=== PATIENT | male | born 1965 | race Caucasian/White ===

== ENCOUNTER 2016-06-02 12:06 | Emergency (ER) | payer SELFPAY ==
[~2016-06-02] VITALS: Ht 193 cm; Wt 175.9 kg
[2016-06-02 12:12] VITALS: Ht 193 cm; Wt 175.9 kg
[2016-06-02] MEDS ORDERED: HYD25 PO (13:14)
--- NOTE | 2016-06-02 13:19 | ERD ---
ER Documentation Chief Complaint Date/Time DATE: 06/02/16 TIME: 13:17 Chief Complaint ASYMTOMATIC HTN, SEND BY CLINIC FOR FURTHER EVAL HPI 50-year-old male, extremely pleasant. The patient presents with asymptomatic hypertension. The patient presented to the clinic. They were noted that his blood pressure was in the 200s. He is asymptomatic. Occasionally has a mild headache but none today. He denies any chest pain, no exertional symptoms, no vision changes. He has been told he has high blood pressure in the past but has not been started on any medication. The patient continues to be asymptomatic and does not have a primary care physician. No other complaints noted today. ROS All systems reviewed and are negative except as per history of present illness. Medications Home Meds Active Scripts Hydrochlorothiazide* (Hydrochlorothiazide*) 25 Mg Tab, 25 MG PO DAILY, #30 TAB Prov:HANNAH LOO MD 06/02/16 PMhx/Soc Medical and Surgical Hx: pt denies Medical Hx FmHx Family History: No diabetes Physical Exam Vitals Vital Signs Date Time Temp Pulse Resp B/P Pulse Ox O2 Delivery O2 Flow Rate FiO2 06/02/16 12:12 98.4 91 18 225/123 99 Physical Exam General: Well developed, well nourished, no acute distress Head: Normocephalic, atraumatic. Eyes: Pupils equally reactive, EOM intact ENT: Moist mucous membranes Neck: Supple, no lymphadenopathy Respiratory: Lungs clear bilaterally, no distress Cardiovascular: RRR, no murmurs, rubs, or gallops Abdominal: Soft, non-tender, non-distended, no peritoneal signs : Deferred MSK: No edema, no unilateral swelling, 5/5 strength Neurologic: Alert and oriented, moving all extremities, normal speech, no focal weakness, no cerebellar signs Skin: No rash Psych: Normal mood Results 24 hrs Current Medications Medications (Trade) Dose Ordered Sig/Mele Route PRN Reason Start Time Stop Time Status Last Admin Dose Admin Nicardipine HCl (Cardene) 30 mg ONCE ONCE PO 06/02/16 13:30 06/02/16 13:31 Procedures/MDM Patient's blood pressure was elevated (>120/80) but appears stable without evidence of hypertensive emergency or urgency. The patient was counseled about the risks of hypertension and urged to pursue outpatient monitoring and therapy within a week with their primary care physician. The patient's blood pressure is in the 200s placing him at risk for stroke. Gradual lowering with oral medication would be reasonable. I would avoid aggressive lowering with IV or IM medications given the risk of stroke and heart attack. The patient was given 30 mg of p.o. carding. I believe initiation of antihypertensive medication would be reasonable. The patient will be started on hydrochlorothiazide 25 mg daily. He was strongly advised to find a primary care physician. He has been [facility] to [facility]. The patient is safe for discharge at this time. We discussed follow up with the patient's primary care doctor within 24 to 48 hours as needed. We also discussed return to the emergency room for worsening symptoms or worsening condition. Discharge Medications: Hydrochlorothiazide 25 mg once daily Departure Diagnosis: Primary Impression: Essential hypertension Condition: Stable Patient Instructions: Hypertension, New (Begin Treatment) Referrals: [facility] YOU HAVE RECEIVED A MEDICAL SCREENING EXAM AND THE RESULTS INDICATE THAT YOU DO NOT HAVE A CONDITION THAT REQUIRES URGENT TREATMENT IN THE EMERGENCY DEPARTMENT. FURTHER EVALUATION AND TREATMENT OF YOUR CONDITION CAN WAIT UNTIL YOU ARE SEEN IN YOUR DOCTORS OFFICE WITHIN THE NEXT 1-2 DAYS. IT IS YOUR RESPONSIBILITY TO MAKE AN APPOINTMENT FOR [facility]. IF YOU HAVE A PRIMARY DOCTOR --you should call your primary doctor and schedule an appointment IF YOU DO NOT HAVE A PRIMARY DOCTOR YOU CAN CALL OUR PHYSICIAN REFERRAL HOTLINE AT IF YOU CAN NOT AFFORD TO SEE A PHYSICIAN YOU CAN CHOSE FROM THE FOLLOWING [facility] CLINICS [employer] [address] [facility]. [facility] [address] [facility] [facility] [address] [facility] [address] [facility]. [facility] [address] [facility]. [facility]. [address] [facility]. [facility] YOU HAVE RECEIVED A MEDICAL SCREENING EXAM AND THE RESULTS INDICATE THAT YOU DO NOT HAVE A CONDITION THAT REQUIRES URGENT TREATMENT IN THE EMERGENCY DEPARTMENT. FURTHER EVALUATION AND TREATMENT OF YOUR CONDITION CAN WAIT UNTIL YOU ARE SEEN IN YOUR DOCTORS OFFICE WITHIN THE NEXT 1-2 DAYS. IT IS YOUR RESPONSIBILITY TO MAKE AN APPOINTMENT FOR [facility]. IF YOU HAVE A PRIMARY DOCTOR --you should call your primary doctor and schedule and appointment IF YOU DO NOT HAVE A PRIMARY DOCTOR YOU CAN CALL OUR PHYSICIAN REFERRAL HOTLINE AT . IF YOU CAN NOT AFFORD TO SEE A PHYSICIAN YOU CAN CHOSE FROM THE FOLLOWING [facility] INSTITUTIONS: [facility] [address] [place] [address] [facility] [address] [place] [address] [facility] [address] [place] [address] Additional Instructions: Call your primary care doctor TOMORROW for an appointment during the next 2-3 days.See the doctor sooner or return here if your condition worsens before your appointment time. HANNAH LOO MD Jun 02, 2016 13:19
[2016-06-02] MEDS ORDERED: NICARDipine HCL 30 MG CAPSULE PO ONE (13:30)
[2016-06-02 13:45] VITALS: BP 212/108; PULSE 90; RESP 20
== END 2016-06-02 14:01 | disposition home or self-care (01) ==
LOC: E/R 12:06
DX: I10 Essential (primary) hypertension (principal); F17.210 Nicotine dependence, cigarettes, uncomplicated
CPT/HCPCS: 99283